=== PATIENT | female | born 1995 | race Caucasian/White ===

== ENCOUNTER 2018-08-26 20:03 | Emergency (ER) | payer OTHER ==
[~2018-08-26] VITALS: Ht 160 cm; Wt 56.3 kg
[2018-08-26 20:06] VITALS: Ht 160 cm; Wt 56.3 kg
[2018-08-26] MEDS ORDERED: SOD CHLORIDE 0.9% 1,000 ML IV STA (22:13)
[2018-08-26] MEDS ORDERED: KETOROLAC 30 MG INJ IV STA (22:13)
--- NOTE | 2018-08-26 22:33 | ERD ---
ER Documentation Chief Complaint Chief Complaint RUQ abdominal pain radiating down to right pelvic area HPI 22-year-old female with history of gallstones complaints of right upper abdominal pain is radiating down to the right lower quadrant for the past few days. In addition she is been saying she is having some right flank pain. She also states that she is been having some dysuria but denies hematuria. States that she has been having some vomiting as well. Admits to anorexia. Denies fevers. Does not want opiates. Denies chest pain, dyspnea, shortness of breath. ROS All systems reviewed and are negative except as per history of present illness. Medications Home Meds Active Scripts Hydrocodone/Acetaminophen ([place] 5-325 Tablet) 1 Each Tablet, 1 TAB PO Q6H PRN for PAIN, #15 TAB Prov:LICO DON 08/27/18 Ibuprofen* (Motrin*) 600 Mg Tab, 600 MG PO Q6 for pain, #30 TAB Prov:LICO DON 08/27/18 Cephalexin* (Keflex*) 500 Mg Capsule, 500 MG PO BID for pyelonephritis for 14 Days, CAP Prov:LICO DON 08/27/18 PMhx/Soc Medical and Surgical Hx: pt denies Medical Hx, pt denies Surgical Hx Hx Alcohol Use: No Hx Substance Use: No Hx Tobacco Use: No Smoking Status: Never smoker FmHx Family History: No diabetes, No coronary disease, No other Physical Exam Vitals Vital Signs Date Temp Pulse Resp B/P (MAP) Pulse Ox O2 O2 Flow FiO2 Time Delivery Rate 08/26/18 97.8 95 18 125/72 98 20:06 (89) Physical Exam Const: No acute distress Head: Atraumatic Eyes: Normal Conjunctiva ENT: Normal External Ears, Nose and Mouth. Neck: Full range of motion. No meningismus. Resp: Clear to auscultation bilaterally Cardio: Regular rate and rhythm, no murmurs Abd: Positive Onofre's. Positive McBurney's tenderness. Soft, non tender, non distended. Normal bowel sounds Skin: No petechiae or rashes Back: No midline or flank tenderness Ext: No cyanosis, or edema Neur: Awake and alert Psych: Normal Mood and Affect Result Diagram: 08/26/18225008/26/182250 Results 24 hrs Laboratory Tests Test 08/26/18 22:26 08/26/18 22:29 08/26/18 22:51 Urine Color YELLOW Urine Clarity CLEAR Urine pH 6.0 Urine Specific [place] 1.019 Urine Ketones TRACE mg/dL Urine Nitrite NEGATIVE mg/dL Urine Bilirubin NEGATIVE mg/dL Urine Urobilinogen NEGATIVE mg/dL Urine Leukocyte Esterase 1+ Lainey/ul Urine Microscopic RBC 1 /HPF Urine Microscopic WBC 47 /HPF Urine Squamous Epithelial Cells FEW /HPF Urine Bacteria FEW /HPF Urine Mucus MODERATE /HPF Urine Hemoglobin 1+ mg/dL Urine Glucose NEGATIVE mg/dL Urine Total Protein NEGATIVE mg/dl POC Beta HCG, Qualitative NEGATIVE White Blood Count 7.5 10^3/ul Red Blood Count 4.34 10^6/ul Hemoglobin 12.9 g/dl Hematocrit 39.3 % Mean Corpuscular Volume 90.6 fl Mean Corpuscular Hemoglobin 29.7 pg Mean Corpuscular 32.8 g/dl Hemoglobin Concent Red Cell Distribution Width 12.2 % Platelet Count 279 10^3/UL Mean Platelet Volume 10.5 fl Immature Granulocytes % 0.300 % Neutrophils % 40.8 % Lymphocytes % 44.7 % Monocytes % 6.1 % Eosinophils % 7.7 % Basophils % 0.4 % Nucleated Red Blood Cells % 0.0 /100WBC Immature Granulocytes # 0.020 10^3/ul Neutrophils # 3.1 10^3/ul Lymphocytes # 3.4 10^3/ul Monocytes # 0.5 10^3/ul Eosinophils # 0.6 10^3/ul Basophils # 0.0 10^3/ul Nucleated Red Blood Cells # 0.0 10^3/ul Sodium Level 138 mmol/L Potassium Level 3.8 mmol/L Chloride Level 107 mmol/L Carbon Dioxide Level 22 mmol/L Anion Gap 9 Blood Urea Nitrogen 9 mg/dl Creatinine 0.52 mg/dl Est Glomerular Filtrat > 60 mL/min Rate mL/min Glucose Level 78 mg/dl Calcium Level 9.5 mg/dl Total Bilirubin 0.4 mg/dl Direct Bilirubin 0.00 mg/dl Indirect Bilirubin 0.4 mg/dl Aspartate Amino 20 IU/L Transf (AST/SGOT) Alanine 24 IU/L Aminotransferase (ALT/SGPT) Alkaline Phosphatase 56 IU/L Total Protein 7.1 g/dl Albumin 4.2 g/dl Globulin 2.90 g/dl Albumin/Globulin Ratio 1.44 Lipase 59 U/L Current Medications Medications Dose Sig/Kirill Start Time Status Last (Trade) Ordered Route PRN Stop Time Admin Dose Reason Admin Sodium 1,000 ml @ Q1H STAT 08/26/18 DC 08/26/18 Chloride 1,000 mls/hr IV 22:13 22:48 08/26/18 23:12 Ketorolac 30 mg ONCE STAT 08/26/18 DC 08/26/18 Tromethamine IV 22:13 22:48 (Toradol) 08/26/18 22:17 Ceftriaxone 50 ml @ ONCE ONCE 08/27/18 UNV Sodium 100 mls/hr IVPB 00:30 08/27/18 00:59 Procedures/MDM DIAGNOSTIC IMAGING REPORT Patient: HEMALATHA BEAR : 1995 Age: 22 Sex: F MR #: [id number] DOS: 08/26/18 2213 Ordering MD: LICO DON Location: [facility] Room/Bed: PROCEDURE: CT Abdomen and Pelvis without contrast. CLINICAL INDICATION: Pain. TECHNIQUE: CT scan of the abdomen and pelvis was performed on a multidetector slice CT scanner. No intravenous contrast material was utilized. Sagittal and coronal reformatted images were obtained from the axial source images. Images were reviewed on a high-resolution PACS workstation. Exam CTDlvol = 7 mGy and DLP = 374 Gy-cm. One of the following 3 dose reduction techniques were used: Automated exposure control; adjustment of the mA and/or kV according to patient size; or use of iterative reconstruction technique. DICOM images are available. COMPARISON: Right upper quadrant ultrasound 08/26/2018. FINDINGS: There is no bowel obstruction or ileus. There is scattered air-fluid levels in nondilated small bowel. There is moderate retained stool throughout the colon. The appendix is posterior to the cecum and is normal appearance. There is no secondary evidence for appendicitis.. There is no evidence for diverticulitis. There is no free fluid. The liver is overall normal in size. No intrahepatic lesions are identified. The gallbladder is normal in appearance. There is no definite biliary ductal dilation. Pancreas is normal in appearance. The spleen is unremarkable. There are no adrenal masses. The aorta is normal caliber. Kidneys are normal in appearance without hydronephrosis, mass or calculus. There is no perinephric collection. Ureters are of normal caliber and without evidence for an obstructing calculus The urinary bladder is normal in appearance. The uterus and ovaries are grossly unremarkable. Limited evaluation of the lung bases is unremarkable. The bones are unremarkable. IMPRESSION: 1. Air-fluid levels in nondilated small bowel, possibly mild enteritis. No bowel obstruction or ileus. Moderate retained stool throughout the colon. 2. No evidence for appendicitis. 3. No obstructive uropathy. 4. Otherwise negative. RPTAT: HMVK .Abdullahi Silva MD, MD Date Time Electronically viewed and signed by .Abdullahi Silva MD, MD on 08/27/2018 00:13 .K/ CC: LICO DON [phone] DIAGNOSTIC IMAGING REPORT Patient: HEMALATHA BEAR : 1995 Age: 22 Sex: F MR #: [id number] DOS: 08/26/18 2213 Ordering MD: LICO DON Location: [facility] Room/Bed: PROCEDURE: US Abdomen (right upper quadrant). CLINICAL INDICATION: Abdominal pain. TECHNIQUE: Multiple real-time longitudinal and transverse images of the right upper quadrant of the abdomen were acquired utilizing a curved array transducer. Images were reviewed on a high-resolution PACS workstation. COMPARISON: None FINDINGS: The liver is normal in size and echogenicity without focal mass or intrahepatic biliary dilatation. The gallbladder is normal. There is no pericholecystic fluid or gallbladder wall thickening or gallstones. No intra or extrahepatic biliary dilatation is seen. The common bile duct measures 1.9 mm in maximal dimension. The visualized portions of the pancreas are unremarkable with obscuration of the tail of the pancreas. No free fluid is identified. The right kidney measures 9 cm in length. There is normal echogenicity within the right kidney. There is no perinephric fluid collection. No hydronephrosis, mass, or calculus is seen. IMPRESSION: 1. The pancreas is partially visualized. Otherwise unremarkable right upper quadrant ultrasound. RPTAT: HFN .Jaylen Guido MD, MD Date Time Electronically viewed and signed by .Jaylen Guido MD, on 08/27/2018 00:04 .N/ CC: LICO DON [id number] MDM: Gallbladder ultrasound and abdominal pelvic CT were ordered. Both are within normal limits. I have low suspicion for appendicitis, cholecystitis, kidney stone, ovarian torsion, Or any other emergent condition. patient's pres entation is most consistent with pyelonephritis. Patient given 1 g of subtraction in the ER and discharged with 14 days of Keflex. Patient discharged with strict ER precautions. Patient advised to follow up with PMD. All questions answered at discharge. Departure Diagnosis: Primary Impression: Pyelonephritis Additional Impression: Abdominal pain Abdominal location: right lower quadrant Qualified Codes: R10.31 - Right lower quadrant pain Condition: Stable LICO DON Aug 26, 2018 22:33
[2018-08-27] MEDS ORDERED: HYDR-4011 PO (00:25)
[2018-08-27] MEDS ORDERED: IBUP-1542 PO (00:25)
[2018-08-27] MEDS ORDERED: CEPH-443 PO (00:25)
[2018-08-27] MEDS ORDERED: CEFTRIAXONE 1 GM/50 ML (PMX) 50 ML IVPB ONE (00:30)
[2018-08-27 01:44] VITALS: BP 122/56; PULSE 88; RESP 18
== END 2018-08-27 01:46 | disposition home or self-care (01) ==
LOC: FTE 20:03
DX: N12 Tubulo-interstitial nephritis, not specified as acute or chronic (principal)
CPT/HCPCS: 36415; 74176; 76705; 80053; 81001; 81025; 83690; 85025; 87086; 96361; 96365; 96375; 99285; J0696; J1885; J7030